=== PATIENT | male | born 1995 | race Native Hawaiian/Other Pacific Islander ===

== ENCOUNTER 2020-09-17 19:09 | Emergency (ER) | payer SELFPAY ==
--- NOTE | 2020-09-17 19:56 | Event Note ---
ED Screening Note Date of service: 09/17/20 Time: 19:48 ED Screening Note: 25-year-old morbid obese male presents to the emergency room for acute epigastric versus chest pain that started 1 hour prior to arrival. Patient does admit to drinking alcohol yesterday and he does smoke cigarettes but quit last month. Patient denies any past medical history currently takes no medications on a daily basis. This initial assessment/diagnostic orders/clinical plan/treatment(s) is/are subject to change based on patients health status, clinical progression and re- assessment by fellow clinical providers in the ED. Further treatment and workup at subsequent clinical providers discretion. Patient/guardian urged not to elope from the ED as their condition may be serious if not clinically assessed and managed. Initial orders include:
[2020-09-17 20:11] LABS: Hematocrit 42.8 % (35.5-45.6); Hemoglobin 14.7 gm/dl (11.8-15.2); Mean Corpuscular HGB Conc 34 % (32-34); Mean Corpuscular Volume 87 fl (84-94); Platelet Count 208 K/mm3 (140-440); Red Blood Count 4.95 M/mm3 (3.65-5.03); Red Cell Distribution Width 14.2 % (13.2-15.2)
--- NOTE | 2020-09-17 20:32 | XRay Report ---
CHEST 2 VIEWS INDICATION / CLINICAL INFORMATION: sob,cough and rales. COMPARISON: None available. FINDINGS: SUPPORT DEVICES: None. HEART / MEDIASTINUM: No significant abnormality. LUNGS / PLEURA: No significant pulmonary or pleural abnormality. No pneumothorax. ADDITIONAL FINDINGS: No significant additional findings. IMPRESSION: 1. No acute findings. Signer Name: Barney Hickman MD Signed: 09/17/2020 8:28 PM Workstation Name: [id number]
[2020-09-17 20:33] LABS: Alanine Aminotransferase 41 units/L (7-56); BUN/Creatinine Ratio 22; Blood Urea Nitrogen 22 mg/dL (9-20); Calcium 9.9 mg/dL (8.4-10.2); Hemolysis Index 11
[2020-09-17] MEDS ORDERED: FAMOTIDINE 20 MG TAB PO ONE (20:38)
--- NOTE | 2020-09-17 20:53 | Emergency Department Report ---
ED General Adult HPI - General Chief complaint: Chest Pain Stated complaint: CHEST PAIN Time Seen by Provider: 09/17/20 20:37 Source: patient Mode of arrival: Ambulatory Limitations: No Limitations - History of Present Illness Initial comments: 25-year-old morbid obese male presents to the emergency room for acute epigastric versus chest pain that started 1 hour prior to arrival. Patient does admit to drinking alcohol yesterday and he does smoke cigarettes but quit last month. Patient denies any past medical history currently takes no medications on a daily basis. 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) Location: abdomen Severity scale (0 -10): 0 Quality: stabbing Consistency: intermittent Improves with: none Associated Symptoms: denies: cough, diaphoresis, nausea/vomiting - Related Data Previous Rx's Medication Instructions Recorded Last Taken Type Dicyclomine [Bentyl] 10 mg PO QID #16 capsule 09/17/20 Unknown Rx Famotidine [Pepcid] 20 mg PO BID 10 Days #20 tablet 09/17/20 Unknown Rx Sucralfate [Carafate] 1 gm PO ACHS #15 tablet 09/17/20 Unknown Rx Allergies Allergy/AdvReac Type Severity Reaction Status Date / Time No Known Allergies Allergy Unverified 09/17/20 19:29 ED Review of Systems ROS: Stated complaint: CHEST PAIN Other details as noted in HPI Comment: All other systems reviewed and negative ED Past Medical Hx - Past Medical History Previous Medical History?: Yes Additional medical history: Morbid Obesity - Surgical History Past Surgical History?: Yes Additional Surgical History: Left ankle - Social History Smoking Status: Current Every Day Smoker Substance Use Type: None - Medications Home Medications: Home Medications Medication Instructions Recorded Confirmed Last Taken Type Dicyclomine [Bentyl] 10 mg PO QID #16 capsule 09/17/20 Unknown Rx Famotidine [Pepcid] 20 mg PO BID 10 Days #20 tablet 09/17/20 Unknown Rx Sucralfate [Carafate] 1 gm PO ACHS #15 tablet 09/17/20 Unknown Rx ED Physical Exam - General Limitations: No Limitations General appearance: alert, in no apparent distress, obese - Head Head exam: Present: atraumatic, normocephalic - Eye Eye exam: Present: normal appearance - ENT ENT exam: Present: mucous membranes moist - Neck Neck exam: Present: normal inspection, full ROM - Respiratory Respiratory exam: Present: normal lung sounds bilaterally. Absent: respiratory distress, chest wall tenderness, accessory muscle use - Cardiovascular Cardiovascular Exam: Present: regular rate, normal rhythm. Absent: systolic murmur, diastolic murmur, rubs, gallop - GI/Abdominal GI/Abdominal exam: Present: soft, tenderness (epigastric), normal bowel sounds - Extremities Exam Extremities exam: Present: normal inspection - Back Exam Back exam: Present: normal inspection - Neurological Exam Neurological exam: Present: alert, oriented X3, normal gait - Psychiatric Psychiatric exam: Present: normal affect, normal mood - Skin Skin exam: Present: warm, dry, intact, normal color. Absent: rash ED Course Vital Signs 09/17/20 19:28 Temperature 98.3 F Pulse Rate 93 H Respiratory 20 Rate Blood Pressure 195/101 [Left] O2 Sat by Pulse 97 Oximetry ED Medical Decision Making - Lab Data Result diagrams: 09/17/20 19:59 09/17/20 19:59 - EKG Data EKG shows normal: sinus rhythm Rate: normal - Radiology Data Radiology results: report reviewed Patient: JOJO GU MR#: [id number] : 1995 Acct:[id number] Age/Sex: 25 / M ADM Date: 09/17/20 Loc: ED Attending Dr: Ordering Physician: SWATI CABEZAS Date of Service: 09/17/20 Procedure(s): XR chest routine 2V Accession Number(s): [id number] cc: SWATI CABEZAS Fluoro Time In Minutes: CHEST 2 VIEWS INDICATION / CLINICAL INFORMATION: sob,cough and rales. COMPARISON: None available. FINDINGS: SUPPORT DEVICES: None. HEART / MEDIASTINUM: No significant abnormality. LUNGS / PLEURA: No significant pulmonary or pleural abnormality. No pneumothorax. ADDITIONAL FINDINGS: No significant additional findings. IMPRESSION: 1. No acute findings. Signer Name: Barney Lugo MD Signed: 09/17/2020 8:28 PM Workstation Name: [id number] Transcribed By: Dictated By: BARNEY LUGO Electronically Authenticated By: BARNEY LUGO Signed Date/Time: 09/17/202027 DD/ 26 TD/TT: - Medical Decision Making 25-year-old morbid obese male presents to the emergency room for acute epigastric versus chest pain that started 1 hour prior to arrival. Patient does admit to drinking alcohol yesterday and he does smoke cigarettes but quit last month. Patient denies any past medical history currently takes no medications on a daily basis. X-rays negative labs are stable and nonactionable. Taking medication such as Bentyl, Carafate and Pepcid. Eat anything down. Avoid alcoholic beverages avoid cigarette smoking. Critical care attestation.: If time is entered above; I have spent that time in minutes in the direct care of this critically ill patient, excluding procedure time. ED Disposition Clinical Impression: Epigastric pain, Morbid (severe) obesity due to excess calories Disposition: - TO HOME OR SELFCARE Does the pt Need Aspirin: No Condition: Stable Instructions: Abdominal Pain, Adult, [id number], Obesity, Adult, [id number] Additional Instructions: Chest x-ray is negative for any acute abnormality labs are stable. Recommend you take your medications avoid alcohol beverages avoid eating and lying straight down. Do not lay down or go to sleep until 2 hours after consuming food. Follow-up with your primary care provider. I have referred you to a bariatric surgeon to discuss options for weight loss. Prescriptions: Dicyclomine [Bentyl] 10 mg PO QID #16 capsule Sucralfate [Carafate] 1 gm PO ACHS #15 tablet Famotidine [Pepcid] 20 mg PO BID 10 Days #20 tablet Referrals: MARY ELY MD [Staff Physician] - 3-5 Days [facility], [Primary Care Provider] - 3-5 Days BRIANNA GROSS MD [Staff Physician] - 3-5 Days Forms: Work/School Release Form(ED)
[2020-09-17] MEDS ORDERED: DICYCLOMINE 20 MG TAB PO ONE (21:00)
[2020-09-17 21:25] LABS: RBC Morphology Normal; Total Cells Counted 100
[2020-09-17 22:40] VITALS: BP 165/98
== END 2020-09-17 22:39 | disposition home or self-care (01) ==
LOC: ED 19:09
DX: R10.13 Epigastric pain (principal); E66.01 Morbid (severe) obesity due to excess calories; Z68.44 Body mass index [BMI] 60.0-69.9, adult
CPT/HCPCS: 36415; 71046; 80053; 83690; 84484; 85007; 85025; 93005

== ENCOUNTER 2021-01-21 01:24 | Emergency (ER) | payer SELFPAY ==
--- NOTE | 2021-01-21 01:39 | Event Note ---
ED Screening Note Date of service: 01/21/21 ED Screening Note: 25-year-old morbid obese male presents to the emergency room for 3-day history of abdominal pain. Patient states that the pain is gotten worse and is located around the periumbilicus. Denies any nausea vomiting or diarrhea. Pain 8 out of 10 This initial assessment/diagnostic orders/clinical plan/treatment(s) is/are subject to change based on patients health status, clinical progression and re- assessment by fellow clinical providers in the ED. Further treatment and workup at subsequent clinical providers discretion. Patient/guardian urged not to elope from the ED as their condition may be serious if not clinically assessed and managed. Initial orders include: Tenderness to periumbilicus.
[2021-01-21 01:58] LABS: Basophils % (Auto) 0.3 % (0.0-1.8); Eosinophils # (Auto) 0.1 K/mm3 (0.0-0.4); Hematocrit 48.2 % (35.5-45.6); Hemoglobin 16.2 gm/dl (11.8-15.2); Lymphocytes # (Auto) 1.2 K/mm3 (1.2-5.4); Lymphocytes % (Auto) 18.2 % (13.4-35.0); Mean Corpuscular HGB Conc 34 % (32-34); Mean Corpuscular Volume 88 fl (84-94); Monocytes # (Auto) 0.5 K/mm3 (0.0-0.8); Platelet Count 261 K/mm3 (140-440); Red Blood Count 5.49 M/mm3 (3.65-5.03); Red Cell Distribution Width 14.2 % (13.2-15.2)
[2021-01-21 02:20] LABS: Albumin 4.8 g/dL (3.9-5); BUN/Creatinine Ratio 14; Blood Urea Nitrogen 11 mg/dL (9-20); Calcium 9.4 mg/dL (8.4-10.2); Hemolysis Index 31
[2021-01-21 02:42] LABS: Alanine Aminotransferase 952 units/L (7-56)
[2021-01-21] MEDS ORDERED: ONDANSETRON 4 MG/2 ML INJ IV ONE (03:14)
[2021-01-21] MEDS ORDERED: MORPHINE 4 MG/1 ML INJ IV ONE (03:14)
--- NOTE | 2021-01-21 03:22 | Emergency Department Report ---
<SHERRIE PATEL III Mabel - Last Filed: 01/21/21 05:19> ED Abdominal Pain HPI - General Chief Complaint: Abdominal Pain Stated Complaint: ABD PAIN PUI?: No Time Seen by Provider: 01/21/21 03:12 - History of Present Illness -: Sudden - Related Data Previous Rx's Medication Instructions Recorded Last Taken Type Dicyclomine [Bentyl] 10 mg PO QID #16 capsule 09/17/20 Unknown Rx Famotidine [Pepcid] 20 mg PO BID 10 Days #20 tablet 09/17/20 Unknown Rx Sucralfate [Carafate] 1 gm PO ACHS #15 tablet 09/17/20 Unknown Rx Allergies Allergy/AdvReac Type Severity Reaction Status Date / Time No Known Allergies Allergy Unverified 09/17/20 19:29 ED Past Medical Hx - Medications Home Medications: Home Medications Medication Instructions Recorded Confirmed Last Taken Type Dicyclomine [Bentyl] 10 mg PO QID #16 capsule 09/17/20 Unknown Rx Famotidine [Pepcid] 20 mg PO BID 10 Days #20 tablet 09/17/20 Unknown Rx Sucralfate [Carafate] 1 gm PO ACHS #15 tablet 09/17/20 Unknown Rx ED Course - Reevaluation(s) Reevaluation #1: I reviewed the findings and management of this patient in real-time and I have personally seen and examined this patient and participated in the decision making for this patient with the midlevel. Patient is a 25-year-old male who presents emergency room with severe abdominal pain. Patient is an obese male. Patient had labs done which were significant for elevated bilirubin, elevated LFTs. Patient clinical findings are concerning for a choledocholithiasis with obstruction. We were unable to do a CAT scan at this facility since the patient's weight surpasses the limit of our CT scanner. Patient will be transferred to a facility that is able to accommodate this patient's weight. I examined the patient. Patient's lung sounds are clear. Patient's CV exam shows a normal S1 and S2. Patient's abdominal exam shows significant abdominal tenderness to palpation. I discussed all results with patient. I discussed plan of care with patient. Patient agrees with plan of care and transfer. 01/21/21 03:45 ED Medical Decision Making - Lab Data Result diagrams: 01/21/21 01:43 01/21/21 01:43 - Differential Diagnosis Choledocholithiasis, cholecystitis, abdominal pain, cbd obstruction ED Disposition Clinical Impression: Hyperbilirubinemia, Morbid obesity with BMI of 60.0-69.9, adult, Acute abdominal pain Disposition: DC/TX-70 ANOTHER TYPE HLTHCARE Is pt being admited?: No Does the pt Need Aspirin: No Condition: Critical Referrals: PRIMARY [facility]ARE,MD [Primary Care Provider] - 3-5 Days Time of Disposition: 05:28 <REYKODAK' M - Last Filed: 01/21/21 06:34> ED Abdominal Pain HPI - General Source: patient Mode of arrival: Ambulatory Limitations: No Limitations - History of Present Illness Initial Comments: 25-year-old morbid obese male presents to the emergency room for 3-day history of abdominal pain. Patient states that the pain is gotten worse and is located around the periumbilicus. Denies any nausea vomiting or diarrhea. Pain 8 out of 10. Patient denies any past medical history currently takes no medications on a daily basis has no known drug allergies. Reports up-to-date on his vaccines. Denies any surgical history. Denies any chest pain no shortness of breath but when he takes a deep breath abdomen hurts. 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 Severity scale (0 -10): 8 ED Review of Systems ROS: Stated complaint: ABD PAIN Other details as noted in HPI Comment: All other systems reviewed and negative ED Past Medical Hx - Past Medical History Previous Medical History?: No Additional medical history: Morbid Obesity - Surgical History Past Surgical History?: Yes Additional Surgical History: Left ankle. LT ear - Social History Smoking Status: Former Smoker Substance Use Type: None ED Physical Exam - General Limitations: No Limitations General appearance: alert, in no apparent distress - Head Head exam: Present: atraumatic, normocephalic - Eye Eye exam: Present: normal appearance - ENT ENT exam: Present: mucous membranes moist - Neck Neck exam: Present: normal inspection, full ROM - Respiratory Respiratory exam: Present: normal lung sounds bilaterally. Absent: chest wall tenderness, accessory muscle use - Cardiovascular Cardiovascular Exam: Present: regular rate, normal rhythm. Absent: systolic murmur, diastolic murmur, rubs, gallop - GI/Abdominal GI/Abdominal exam: Present: soft, tenderness, normal bowel sounds. Absent: guarding, rebound - Extremities Exam Extremities exam: Present: normal inspection, full ROM - Back Exam Back exam: Present: normal inspection - Neurological Exam Neurological exam: Present: alert, oriented X3 - Psychiatric Psychiatric exam: Present: normal affect, normal mood - Skin Skin exam: Present: warm, dry, intact, normal color. Absent: rash ED Course Vital Signs 01/21/21 01/21/21 01/21/21 01:35 04:07 04:16 Temperature 97.4 F L Pulse Rate 86 70 73 Respiratory 18 10 L 21 Rate Blood Pressure 160/97 160/97 Blood Pressure 177/109 [Right] O2 Sat by Pulse 97 94 98 Oximetry 01/21/21 01/21/21 04:30 04:45 Temperature Pulse Rate 72 75 Respiratory 19 23 Rate Blood Pressure 160/97 138/72 Blood Pressure [Right] O2 Sat by Pulse 94 Oximetry - Reevaluation(s) Reevaluation #2: 01/21/21 06:33 Patient states that he is doing fine his pain is improved. He is resting well vitals are stable. - Consultations Consultation #1: 01/21/21 04:[address] Montoya from [facility], ED they will accept ED to ED. ED Medical Decision Making - Lab Data Result diagrams: 01/21/21 01:43 01/21/21 01:43 - Medical Decision Making 25-year-old morbid obese male presents to the emergency room for 3-day history of abdominal pain. Patient states that the pain is gotten worse and is located around the periumbilicus. Denies any nausea vomiting or diarrhea. Pain 8 out of 10. Patient denies any past medical history currently takes no medications on a daily basis has no known drug allergies. Reports up-to-date on his vaccines. Denies any surgical history. Denies any chest pain no shortness of breath but when he takes a deep breath abdomen hurts. 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 It was noted that patient had elevated liver, 3.70 elevated AST of 748 ALT of 9 52. The patient exceeds probably capacity of our CT scan. Patient will be referred to [facility]. Patient's been ordered morphine 4 mg IV, Zofran 4 mg IV cardiac monitoring. Critical Care Time: Yes Critical care time in (mins) excluding proc time.: 30 Critical care attestation.: If time is entered above; I have spent that time in minutes in the direct care of this critically ill patient, excluding procedure time. ED Disposition Is pt being admited?: No Does the pt Need Aspirin: No
[2021-01-21 07:03] VITALS: BP 134/76
== END 2021-01-21 12:00 | disposition other institution (70) ==
LOC: ED 01:24
DX: E80.6 Other disorders of bilirubin metabolism (principal); E66.01 Morbid (severe) obesity due to excess calories; Z68.44 Body mass index [BMI] 60.0-69.9, adult; R10.9 Unspecified abdominal pain; Z87.891 Personal history of nicotine dependence
CPT/HCPCS: 36415; 80053; 83690; 85025; 96374; 96375; 99283; J2270; J2405